=== PATIENT | female | born 1965 | race Caucasian/White ===

== ENCOUNTER 2016-05-18 14:54 | Emergency (ER) | payer OTHER ==
[2016-05-18 16:15] LABS: ABSOLUTE NEUTROPHIL COUNT 4.5 K/mm3 (1.8-7.7); BASO % 0.4 % (0.2-1.0); EOS % 0.3 % (0.9-2.9); HEMATOCRIT 38.5 % (37.0-47.0); HEMOGLOBIN 12.7 gm/l (12.0-16.0); IMM NEUT% 0.3 % (0-1); LYMPH # 2.8 (1.0-4.8); LYMPH % 35.9 % (15-45); MEAN CELL VOLUME 87.9 fl (81.0-99.0); MEAN PLATELET VOLUME 8.6 fl (7.4-10.4); MONO # 0.4 (0.0-0.8); MONO % 5.1 % (4-12); PLATELET COUNT 302 K/mm3 (130-400); RED CELL DISTRIBUTION WIDTH 11.9 % (11.5-14.5)
[2016-05-18 16:20] LABS: INR 0.93; PROTHROMBIN TIME 9.8 SECONDS (9.3-11.4)
[2016-05-18 16:21] LABS: CALCIUM 9.1 mg/dL (8.6-10.3)
== END 2016-05-18 16:58 | disposition home or self-care (01) ==
LOC: ED 14:54
DX: N92.0 Excessive and frequent menstruation with regular cycle (principal); Z86.718 Personal history of other venous thrombosis and embolism